=== PATIENT | male | born 1955 | race Caucasian/White ===

== ENCOUNTER → 2018-05-02 | Outpatient (REF) ==
[~2018-05-02] MED LIST: ALLOPURINOL300 MG PO; LISINOPRIL2.5 MG PO; LISINOPRIL5 MG PO
[2018-05-02 08:16] LABS: CHOLESTEROL HDL RATIO 2.8 (<4.4 (CALC))
== END | disposition home or self-care (01) | DRG 951 ==
LOC: LAB 07:00
PROVIDERS: ATTEND Family Medicine
DX: Z02.6 Encounter for examination for insurance purposes (principal)

== ENCOUNTER 2018-08-15 18:35 | Emergency (ER) | payer OTHER ==
[~2018-08-15] VITALS: Ht 180.3 cm; Wt 78.0 kg
[2018-08-15] MEDS ORDERED: LUPRON DEPOT45 MG IM (19:18)
[2018-08-15 19:20] LABS: HEMOGLOBIN 14.7 g/dl (14.0-18.0); IMMATURE GRANULOCYTES 0.5 % (0.0-5.0); MEAN CELL VOLUME 91.9 fL CALC (80.0-100.0); MEAN CORPUSCULAR HGB 32.2 pG CALC (26.0-32.0); NEUT# 3.77 thou/uL (1.82-7.42); RED BLOOD COUNT 4.57 mill/uL (4.70-6.10); RED CELL DISTRI WIDTH 12.3 % (11.5-15.5)
[2018-08-15 19:23] LABS: URINE BLOOD DIPSTICK NEGATIVE (NEGATIVE); URINE COLOR YELLOW; URINE GLUCOSE - DIPSTICK NEGATIVE (NEGATIVE); URINE KETONE 15 mg/dL (NEGATIVE); URINE LEUK ESTERASE NEGATIVE (NEGATIVE); URINE NITRITE - DIPSTICK NEGATIVE (Negative); URINE PH 5.5 (4.5-8.0); URINE PROTEIN - DIPSTICK 30 mg/dL (NEG-TRACE); URINE SPECIFIC GRAVITY 1.025; URINE UROBILINOGEN - DIPSTICK 0.2 E.U./dL (0.2)
[2018-08-15 19:24] LABS: URINE BILIRUBIN - DIPSTICK NEGATIVE (NEGATIVE)
[2018-08-15 19:28] LABS: URINE RBC 0-2 RBC/hpf (0-5); URINE WBC 0-2 WBC/hpf (0-5)
[2018-08-15 19:34] LABS: ALBUMIN 4.7 g/dL (3.2-5.0); ALKALINE PHOSPHATASE 75 u/l (38-126); ANION GAP 18 (6-22 (CALC)); BILIRUBIN, TOTAL 0.5 mg/dL (0.0-1.4); BUN 19 mg/dL (8-23); BUN/CREATININE RATIO 16 (12-20 (CALC)); CARBON DIOXIDE 23 mmol/l (22-30); CHLORIDE 103 mmol/l (95-108); CREATININE 1.2 mg/dL (0.7-1.3); GFR > 60 ML/MIN (>=60 (CALC)); GFR FOR AFR.AMER. > 60 ML/MIN (>=60 (CALC)); MAGNESIUM 2.2 mg/dL (1.6-2.3); POTASSIUM 3.7 mmol/l (3.5-5.1); SGOT/AST 32 u/l (19-48); SODIUM 141 mmol/l (137-146); TOTAL PROTEIN 7.9 g/dL (6.3-8.2)
[2018-08-15 19:47] LABS: MYOGLOBIN 89 ng/mL (0 - 121)
[2018-08-15 19:49] LABS: ACT PARTIAL THROMBO TIME 22.2 SECONDS (20.0-32.5); D-DIMER 0.65 mg/L (0.19-0.60); INTERNATIONAL NORMALIZED RATIO 0.9 RATIO (0.7-1.3); PROTHROMBIN TIME 9.7 SECONDS (9.0-12.5)
[2018-08-15 22:11] VITALS: BP 141/73
== END 2018-08-15 22:11 | disposition home or self-care (01) | DRG 312 ==
LOC: ED 18:35
PROVIDERS: Family Medicine
DX: R55 Syncope and collapse (principal); I95.9 Hypotension, unspecified; R00.1 Bradycardia, unspecified; Z85.46 Personal history of malignant neoplasm of prostate; Z72.89 Other problems related to lifestyle; X30.XXXA Exposure to excessive natural heat, initial encounter; Y92.89 Other specified places as the place of occurrence of the external cause
CPT/HCPCS: Q9967

== ENCOUNTER 2021-10-26 07:28 | Day surgery (SDC) | payer OTHER ==
[~2021-10-26] VITALS: Ht 180.3 cm; Wt 72.6 kg
[~2021-10-26 07:28] MED LIST changes: +ERLEADA60 MG PO; +LISINOPRIL20 M1 PO; +LUPRON DEPOT45 MG IM; +VITAMIN D31000 UNI1 PO
[2021-10-26] MEDS ORDERED: PERCOCET 5/321 COMBO PO (09:15)
[2021-10-26 10:54] VITALS: BP 144/70
== END 2021-10-26 11:04 | disposition home or self-care (01) | DRG 352 ==
LOC: ORM 07:28
PROVIDERS: ATTEND Surgery
PROC: 0YU54JZ Supplement Right Inguinal Region with Synthetic Substitute, Percutaneous Endoscopic Approach (ICD-10-PCS; principal; 2021-10-26)
DX: K40.90 Unilateral inguinal hernia, without obstruction or gangrene, not specified as recurrent (principal); D17.6 Benign lipomatous neoplasm of spermatic cord; I10 Essential (primary) hypertension; Z85.46 Personal history of malignant neoplasm of prostate
CPT/HCPCS: C1781

== ENCOUNTER 2022-08-13 13:30 | Emergency (ER) | payer OTHER ==
[~2022-08-13] VITALS: Ht 180.3 cm; Wt 71.4 kg
[~2022-08-13 13:30] MED LIST changes: +PERCOCET 5/321 COMBO PO
[2022-08-13 13:43] VITALS: BP 167/77
[2022-08-13 14:00] VITALS: BP 166/78
[2022-08-13 14:30] VITALS: BP 141/77
[2022-08-13 15:00] VITALS: BP 139/75
[2022-08-13] MEDS ORDERED: IBUPROFEN600 MG PO (15:13)
== END 2022-08-13 15:30 | disposition home or self-care (01) | DRG 563 ==
LOC: ED 13:30
DX: S42.031A Displaced fracture of lateral end of right clavicle, initial encounter for closed fracture (principal); I10 Essential (primary) hypertension; M10.9 Gout, unspecified; W19.XXXA Unspecified fall, initial encounter